=== PATIENT | female | born 1970 | race African-American/Black ===

== ENCOUNTER 2023-04-19 12:36 | Emergency (ER) | payer OTHER, SELFPAY ==
--- NOTE | ~2023-04-19 | XR_ITS ---
XR shoulder LT min 2V DATE: 04/19/2023 13:31 INDICATION: Dewitt a pop in left shoulder. Pain. TECHNIQUE: 5 views COMPARISON: None FINDINGS: No fracture or dislocation, periosteal reaction or bone destruction. Normal alignment at th e acromioclavicular and glenohumeral joint. No abnormal left shoulder soft tissue calcification. IMPRESSION: No significant abnormality Reviewed, dictated and finalized at location A. F INFORMATION SECURITY OFFICER IMPRESSION: No significant abnormality
[2023-04-19 13:02] VITALS: BP 139/68; PULSE 88; RESP 13; TEMP 36.7; O2SAT 100
--- NOTE | 2023-04-19 13:30 | ED.UPPEXIN ---
HPI - Extremity Injury (Upper) General Chief Complaint: Extremity Injury, Upper Stated Complaint: L. arm pain Time Seen by Provider: 04/19/23 13:16 Source: patient and family Mode of arrival: ambulatory Limitations: no limitations History of Present Illness HPI narrative: PATIENT WAS ASSISTING 1 OF THE RESIDENT, COMBATIVE, SWINGING, FELT POP AT THE LEFT SHOULDER PRIOR TO ARRIVAL. DID NOT TAKE ANY MEDICATION PRIOR TO ARRIVAL. SHE DENIES OTHER INJURIES. Related Data Allergies Allergy/AdvReac Type Severity Reaction Status Date / Time No Known Allergies Allergy Unknown Verified 03/31/18 17:04 Review of Systems Review of Systems: All systems reviewed & are unremarkable except as noted in HPI and below Exam Narrative: GENERAL APPEARANCE: WELL-DEVELOPED, WELL-NOURISHED SKIN: NORMAL COLOR HEAD: NORMOCEPHALIC, NONTRAUMATIC EYES: CLEAR CONJUNCTIVA ENT: OROPHARYNX NORMAL, EARS NORMAL, NOSE NORMAL NECK: SUPPLE, NONTENDER CHEST AND RESPIRATORY: AIRWAY PATENT, NO RESPIRATORY DISTRESS, NO ACCESSORY MUSCLE USE HEART: REGULAR RATE/RHYTHM ABDOMEN: SOFT, NONTENDER, NO ORGANOMEGALY, QUIET BOWEL SOUNDS VASCULAR: NORMAL PERIPHERAL PULSES, NORMAL CAPILLARY REFILL. MUSCULOSKELETAL: SLIGHT DIFFUSE TENDERNESS LEFT SHOULDER, NO BRUISES, NO SWELLING, NO RASH, THIS SLIGHT LIMITED RANGE OF MOTION NEUROLOGIC: ALERT AND ORIENTED ?3, UNIFORM DESIGNER IS NORMAL TESTED, NO GROSS MOTOR DEFICIT Course Vital Signs Vital signs: Vital Signs Temperature 36.7 C 04/19/23 13:02 Pulse Rate 88 04/19/23 13:02 Respiratory Rate 13 04/19/23 13:02 Blood Pressure 139/68 04/19/23 13:02 Pulse Oximetry 100 04/19/23 13:02 Oxygen Delivery Room Air 04/19/23 13:02 Temperature 36.7 C 04/19/23 13:02 Pulse Rate 88 04/19/23 13:02 Respiratory Rate 13 04/19/23 13:02 Blood Pressure 139/68 04/19/23 13:02 Pulse Oximetry 100 04/19/23 13:02 Oxygen Delivery Room Air 04/19/23 13:02 MDM - Extremity Injury (Upper) MDM Narrative Medical decision making narrative: LEFT SHOULDER STRAIN/SPRAIN IS A MY CONCERN. X-RAY LEFT SHOULDER ORDERED AND SHOWED NO ACUTE ABNORMALITIES. IN THE ED PATIENT RECEIVED A 600 MG OF IBUPROFEN, 650 MG OF TYLENOL P.O. PRIOR TO DISCHARGE. WILL BE DISCHARGED ON NAPROXEN, FLEXERIL Differential Diagnosis Differential diagnosis: Likely other ( ABOVE) Imaging Data My impression: X-RAY LEFT SHOULDER SHOWED NO ACUTE ABDOMEN Critical Care Time Critical Care Time Critical Care Time: No Discharge Plan Discharge Clinical Impression: Sprain of left shoulder Patient Disposition: Home, Self-Care Condition: Stable Instructions: Shoulder Sprain (ED) Additional Instructions: RETURN IF SYMPTOMS ARE WORSENING , CALL YOUR FAMILY PHYSICIAN FOR APPOINTMENT, TAKE TYLENOL NEEDED FOR ACHES AND PAIN, CONTINUE HOME MEDICATIONS. Prescriptions: New naproxen [Naprosyn] 500 mg tablet 500 mg PO BID PRN (Reason: pain) Qty: 20 0RF cyclobenzaprine 10 mg tablet 10 mg PO TID PRN (Reason: muscle spasm) Qty: 20 0RF Follow-up/Referrals: PHYSICIAN,MOBILE SALES CONSULTANT [Primary Care Provider] - Minh Wang MD [Physician] - 04/23/23
[2023-04-19] MEDS: ACETAMINOPHEN 325 MG TABLET 650 MG PO (13:54)
[2023-04-19] MEDS: IBUPROFEN 600 MG TABLET PO (13:54)
== END 2023-04-19 14:34 | disposition home or self-care (01) ==
PROVIDERS: Emergency Provider Emergency Medicine
DX: S43.402A Unspecified sprain of left shoulder joint, initial encounter (principal); X50.0XXA Overexertion from strenuous movement or load, initial encounter; Y93.F9 Activity, other caregiving
CPT/HCPCS: 73030; 99283; A9270

== ENCOUNTER 2023-04-22 17:50 | Emergency (ER) | payer OTHER, SELFPAY ==
[2023-04-22 18:11] VITALS: BP 122/70; PULSE 94; RESP 18; TEMP 36.7; O2SAT 100
[2023-04-22 18:26] VITALS: BP 136/50; PULSE 94; RESP 18; TEMP 36.7; O2SAT 98
--- NOTE | 2023-04-22 20:37 | ED.GENADULT ---
HPI - General Adult General Chief complaint: Unspecified Stated complaint: needs work note Time Seen by Provider: 04/22/23 20:18 History of Present Illness HPI narrative: Patient is a 53-year-old female here with continued shoulder pain on the left side after an injury that occurred last week requesting a note for work. 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 Shoulder pain radiates up to her neck, worse with movement. She came that day, had a negative workup and was discharged home. She is supposed to be returning to work tomorrow however when her and her employer looked at her work note from her visit here and it did not give a specific weight restriction so she came back to the ER for a more detailed note to work. Related Data Allergies Allergy/AdvReac Type Severity Reaction Status Date / Time No Known Allergies Allergy Unknown Verified 03/31/18 17:04 Review of Systems Review of Systems: All systems reviewed & are unremarkable except as noted in HPI and below Exam Narrative: GENERAL: Well-appearing, well-nourished, and in no acute distress. HEAD: Normocephalic, atraumatic. EYES: PERRLA and EOMI. ENT: Nares clear. Mucous membranes moist. NECK: Supple. CHEST: Clear to auscultation. No respiratory distress. HEART: Regular rate and rhythm. Normal peripheral pulses. ABDOMEN: Soft, nontender, nondistended. EXTREMITIES: tenderness over the trapezius on the left with mild decreased motion of the shoulder due to pain. SKIN: Warm, dry, no rash. NEURO: No focal deficits. Alert and oriented x3. PSYCH: Normal mood and affect. Course Course Emergency Course: Chart review performed. Patient here for work note for work restrictions. No reviewed from 04/19/2023, she was seen here for this shoulder pain, had a negative x-ray and was discharged home. Patient seen evaluated, nontoxic appearing. Shoulder tenderness on exam, no deformity. No additional injuries, do not feel like additional workup needed at this time. No provided for patient. Advised that her primary care doctor or workman's Comp should be the once to determine her full return to work. The results of pertinent diagnostic studies and exam findings were discussed. The patient?s provisional diagnosis and plan of care were discussed with the patient and present family. The patient and/or present family expressed understanding of the diagnosis and plan. The nurse was instructed to provide written instructions and appropriate follow-up information. The patient understands their need and responsibility to obtain additional follow-up as instructed. The risks of medications administered and prescribed were discussed with the patient and family present. Vital Signs Vital signs: Vital Signs Temperature 98.1 F 04/22/23 18:11 Pulse Rate 94 04/22/23 18:11 Respiratory Rate 18 04/22/23 18:11 Blood Pressure 122/70 04/22/23 18:11 Pulse Oximetry 100 04/22/23 18:11 Oxygen Delivery Room Air 04/22/23 18:11 Temperature 98.0 F 04/22/23 18:26 Pulse Rate 94 04/22/23 18:26 Respiratory Rate 18 04/22/23 18:26 Blood Pressure 136/50 L 04/22/23 18:26 Pulse Oximetry 98 04/22/23 18:26 Oxygen Delivery Room Air 04/22/23 18:11 Medical Decision Making Vital Signs Vital Signs: Vital Signs Temperature 98.1 F 04/22/23 18:11 Pulse Rate 94 04/22/23 18:11 Respiratory Rate 18 04/22/23 18:11 Blood Pressure 122/70 04/22/23 18:11 Pulse Oximetry 100 04/22/23 18:11 Oxygen Delivery Room Air 04/22/23 18:11 Temperature 98.0 F 04/22/23 18:26 Pulse Rate 94 04/22/23 18:26 Respiratory Rate 18 04/22/23 18:26 Blood Pressure 136/50 L 04/22/23 18:26 Pulse Oximetry 98 04/22/23 18:26 Oxygen Delivery Room Air 04/22/23 18:11 Discharge Plan Discharge Clinical Impression: Work related injury Acute shoulder pain Qualifiers: Magda
== END 2023-04-22 20:51 | disposition home or self-care (01) ==
PROVIDERS: Emergency Provider Student in an Organized Health Care Education/Training Program
DX: M25.512 Pain in left shoulder (principal)
CPT/HCPCS: 99281